=== PATIENT | male | born 1990 | race Two or more races ===

== ENCOUNTER 2017-07-14 20:14 | Emergency (ER) | payer OTHER ==
[2017-07-14] MEDS ORDERED: predniSONE 20 MG Tab PO ONE (21:36)
--- NOTE | 2017-07-14 22:55 | ER ---
DATE SEEN: 07/14/2017 REASON FOR VISIT: Pain foot. HISTORY OF PRESENT ILLNESS: A 27-year-old with pain in the left foot for a period of almost 2 years on and off, associated with swelling and also some pain in the left knee with no injury. PAST MEDICAL HISTORY: Obesity. ALLERGIES: No known allergies. MEDICATIONS: None. PHYSICAL EXAMINATION: VITAL SIGNS: Blood pressure is 146/94, pulse 102, and temperature 98.0. EXTREMITIES: Left foot revealed mild swelling of the mid foot and tenderness to palpation. There is also effusion noted on the ankle and mild effusion in the left knee. Full range of motion was noted. IMAGING: X-ray of the left foot revealed an old fracture of the fifth metatarsal. LABS: Revealed a white cell count of 13,000 and uric acid of 9.4. FINAL IMPRESSION: Gout. PLAN: Prednisone 10 mg p.o. b.i.d. I recommended that he see his physician next week to discuss further treatment. TIME SEEN: 2030 hours. /[id number] ROMELIA/INA
--- NOTE | 2017-07-15 12:28 | CR ---
INDICATION: Foot pain, history of gout. Lump at 5th metatarsal laterally. RIGHT FOOT: At the distal end of the 5th metatarsal there are areas of what appear to be erosion with asymmetrical joint space narrowed medially. This appearance may be on the basis of gouty arthritis. No calcified tophus is seen , although there is slight soft tissue swelling overlying that area of the 5th metatarsophalangeal joint. No other definite bone or joint abnormality was identified. 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 The proximal 5th metatarsal area appeared normal. MTDD
== END 2017-07-14 21:45 | disposition home or self-care (01) ==
LOC: FB.ED 20:14
DX: M10.9 Gout, unspecified (principal); E66.9 Obesity, unspecified
CPT/HCPCS: 36415; 73630-RT; 80048; 84550; 85025; 85651; 99284; A9270-GY